=== PATIENT | female | born 1940 | race Caucasian/White ===

== ENCOUNTER 2017-05-07 13:43 | Observation (INO) | payer MEDICARE, OTHER ==
[2017-05-07] MEDS ORDERED: NITROGLYCERIN (SL) 0.4 MG TAB SL (15:00)
[2017-05-07 15:18] LABS: ADD MAN DIFF? NO
[2017-05-07 15:21] LABS: BASOPHIL # 0.1 10^3/ul (0.0-0.1); BASOPHILS % 0.8 % (0.0-2.0); EOSINOPHILS # 0.1 10^3/ul (0.0-0.5); EOSINOPHILS % 1.7 % (0.0-7.0); HEMATOCRIT 37.3 % (37.0-47.0); HEMOGLOBIN 12.6 g/dl (12.0-16.0); LYMPHOCYTES # 2.5 10^3/ul (0.8-2.9); LYMPHOCYTES % 35.7 % (15.0-51.0); MEAN CORPUSCULAR HEMOGLOBIN 27.8 pg (29.0-33.0); MEAN CORPUSCULAR HGB CONC 33.8 g/dl (32.0-37.0); MEAN CORPUSCULAR VOLUME 82.2 fl (82.0-101.0); MEAN PLATELET VOLUME 11.5 fl (7.4-10.4); MONOCYTE # 0.4 10^3/ul (0.3-0.9); NEUTROPHILS % 55.5 % (39.0-77.0); PLATELET COUNT 195 10^3/UL (140-415); RED BLOOD COUNT 4.54 10^6/ul (4.20-5.40); RED CELL DISTRIBUTION WIDTH 13.5 % (11.5-14.5)
[2017-05-07 15:21] LABS: WHITE BLOOD COUNT 7.1 10^3/ul (4.8-10.8)
[2017-05-07] MEDS: ASPIRIN 81 MG TAB PO (15:36)
[2017-05-07 15:40] LABS: ANION GAP 18 (8-16); BLOOD UREA NITROGEN 17 mg/dl (7-20); CALCIUM 9.1 mg/dl (8.4-10.2); CARBON DIOXIDE 27 mmol/L (21-31); CHLORIDE 108 mmol/L (97-110); CREATININE 0.66 mg/dl (0.44-1.00); GLUCOSE 128 mg/dl (70-220); POTASSIUM 3.7 mmol/L (3.5-5.1); SODIUM 149 mmol/L (135-144)
[2017-05-07] MEDS: NITROGLYCERIN 2% 1 GM OINT PKT TD (15:42)
[2017-05-07 15:51] LABS: TROPONIN-I < 0.012 ng/ml (0.00-0.12)
[2017-05-07] MEDS ORDERED: ONDANSETRON 4 MG INJ IV (17:00)
[2017-05-07] MEDS ORDERED: NACL 0.9% 3 ML SYG IV (17:30)
[2017-05-07] MEDS ORDERED: BISACODYL (EC) 5 MG TAB PO (17:30)
[2017-05-07] MEDS ORDERED: LORAZEPAM 0.5 MG TAB PO (17:30)
[2017-05-07] MEDS ORDERED: HYDROCODONE/APAP (5/325) TAB PO (17:30)
[2017-05-07] MEDS: LIDOCAINE/MYLANTA 40 ML BTL PO (17:30)
[2017-05-07] MEDS ORDERED: MAGNESIUM HYDROXIDE 30ML CUP PO (17:30)
[2017-05-07] MEDS ORDERED: GLUCAGON 1 MG INJ IM (20:00)
[2017-05-07] MEDS ORDERED: GLUCOSE GEL 15 GRAM TUBE PO ×2 (20:00)
[2017-05-07] MEDS ORDERED: DEXTROSE 50% 50 ML SYRINGE IV ×2 (20:00)
[2017-05-07] MEDS ORDERED: GLUCOSE GEL 15 GRAM TUBE BUCCAL (20:00)
[2017-05-07] MEDS: INSULIN ASPART [NOVOLOG] 3 ML PEN SC (21:00)
[2017-05-07] MEDS: hydrALAzine 20 MG INJ IV (21:33)
[2017-05-07 21:45] LABS: CREATINE KINASE 52 IU/L (23-200)
[2017-05-07 21:59] LABS: CK INDEX 0.6; CK-MB 0.29 ng/ml (0.0-2.4)
[2017-05-07 22:19] LABS: TROPONIN-I < 0.012 ng/ml (0.00-0.12)
[2017-05-07] MEDS: FAMOTIDINE 20 MG INJ IV (22:42)
[2017-05-07] MEDS: ACETAMINOPHEN 325 MG TAB PO (22:42)
[2017-05-07] MEDS: ONDANSETRON 4 MG INJ IV (22:42)
[2017-05-07] MEDS: GABAPENTIN 300 MG CAP PO (22:43)
[2017-05-07] MEDS: ATORVASTATIN 80 MG TAB PO (22:43)
[2017-05-07] MEDS: PANTOPRAZOLE (EC) 40 MG TAB PO (22:43)
[2017-05-07] MEDS: HEPARIN 5,000 UNIT/0.5 ML VIAL SC (23:00)
[2017-05-08] MEDS: morphine 2 MG INJ IV (00:38)
[2017-05-08] MEDS: SOD CHLORIDE 0.45% 1,000 ML IV ×2 (00:44→07:20)
[2017-05-08] MEDS: ACCU-CHEK XX (02:00)
[2017-05-08 03:49] LABS: ADD MAN DIFF? NO
[2017-05-08] MEDS: LIDOCAINE/MYLANTA 40 ML BTL PO (03:54)
[2017-05-08 04:14] LABS: WHITE BLOOD COUNT 9.7 10^3/ul (4.8-10.8)
[2017-05-08 04:14] LABS: BASOPHIL # 0.1 10^3/ul (0.0-0.1); BASOPHILS % 0.5 % (0.0-2.0); EOSINOPHILS % 0.2 % (0.0-7.0); HEMATOCRIT 36.2 % (37.0-47.0); HEMOGLOBIN 12.4 g/dl (12.0-16.0); LYMPHOCYTES # 1.6 10^3/ul (0.8-2.9); LYMPHOCYTES % 16.9 % (15.0-51.0); MEAN CORPUSCULAR HEMOGLOBIN 27.7 pg (29.0-33.0); MEAN CORPUSCULAR HGB CONC 34.3 g/dl (32.0-37.0); MEAN CORPUSCULAR VOLUME 80.8 fl (82.0-101.0); MEAN PLATELET VOLUME 12.1 fl (7.4-10.4); MONOCYTE # 0.3 10^3/ul (0.3-0.9); NEUTROPHIL # 7.7 10^3/ul (1.6-7.5); NEUTROPHILS % 79.1 % (39.0-77.0); PLATELET COUNT 166 10^3/UL (140-415); RED BLOOD COUNT 4.48 10^6/ul (4.20-5.40); RED CELL DISTRIBUTION WIDTH 13.2 % (11.5-14.5)
[2017-05-08 04:37] LABS: ALANINE AMINOTRANSFERASE 37 IU/L (13-69); ALBUMIN 3.9 g/dl (3.3-4.9); ALKALINE PHOSPHATASE 76 IU/L (42-121); ANION GAP 18 (8-16); ASPARTATE AMINO TRANSFERASE 24 IU/L (15-46); BILIRUBIN,INDIRECT 0.6 mg/dl (0-1.1); BILIRUBIN,TOTAL 0.6 mg/dl (0.2-1.3); BLOOD UREA NITROGEN 15 mg/dl (7-20); CALCIUM 8.4 mg/dl (8.4-10.2); CARBON DIOXIDE 22 mmol/L (21-31); CHLORIDE 107 mmol/L (97-110); CHOL/HDL RATIO 3.7 RATIO; CHOLESTEROL 144 mg/dl (100-200); CREATININE 0.59 mg/dl (0.44-1.00); GLUCOSE 163 mg/dl (70-220); HDL CHOLESTEROL 38 mg/dl (33-92); LDL CHOLESTEROL,CALCULATED 52 mg/dl; MAGNESIUM 1.8 mg/dl (1.7-2.5); POTASSIUM 3.2 mmol/L (3.5-5.1); SODIUM 144 mmol/L (135-144); TOTAL PROTEIN 6.9 g/dl (6.1-8.1); TRIGLYCERIDES 270 mg/dl (0-149)
[2017-05-08 05:09] LABS: HEMOGLOBIN A1C 6.5 % (0-5.9)
[2017-05-08] MEDS: PANTOPRAZOLE (EC) 40 MG TAB PO (06:00)
[2017-05-08] MEDS: HEPARIN 5,000 UNIT/0.5 ML VIAL SC (06:22)
[2017-05-08] MEDS: INSULIN ASPART [NOVOLOG] 3 ML PEN SC ×2 (07:55→11:50)
[2017-05-08 08:11] LABS: CK-MB 0.37 ng/ml (0.0-2.4)
[2017-05-08 08:14] LABS: CK INDEX 0.6; CREATINE KINASE 57 IU/L (23-200)
[2017-05-08 08:17] LABS: TROPONIN-I < 0.012 ng/ml (0.00-0.12)
[2017-05-08] MEDS: ACETAMINOPHEN 325 MG TAB PO (08:48)
[2017-05-08] MEDS: FENOFIBRATE 145 MG TAB PO (08:48)
[2017-05-08] MEDS: ASPIRIN 81 MG TAB PO (08:48)
[2017-05-08] MEDS: AMLODIPINE 10 MG TAB PO (08:49)
[2017-05-08] MEDS: METOPROLOL (XL) 50 MG TAB PO (08:49)
[2017-05-08] MEDS: LISINOPRIL 10 MG TAB PO (12:40)
[2017-05-08] MEDS: POTASSIUM CHLORIDE 20 MEQ POWDER FOR ORAL SOLN PO (12:40)
[2017-05-10] MEDS ORDERED: INFLUENZA VIRUS VACCINE 0.5 ML (DISPENSING) IM* (09:00)
== END 2017-05-08 15:00 | disposition home or self-care (01) ==
LOC: E/R 13:43 → TEL 17:01
DX: R07.9 Chest pain, unspecified (principal); I10 Essential (primary) hypertension; E11.9 Type 2 diabetes mellitus without complications; Z79.02 Long term (current) use of antithrombotics/antiplatelets; K21.9 Gastro-esophageal reflux disease without esophagitis; E78.5 Hyperlipidemia, unspecified
CPT/HCPCS: 71045; 80048; 80053; 80061; 82550; 82553; 82962; 83036; 83735; 84484; 85025; 93005; 93306; 96374; 99285-25; G0378

== ENCOUNTER 2017-09-13 21:57 | Emergency (ER) | payer SELFPAY, OTHER, MEDICARE | END 2017-09-14 02:10 | disposition left against medical advice (07) | LOC: E/R 21:57 | DX: Z53.21 Procedure and treatment not carried out due to patient leaving prior to being seen by health care provider (principal) ==